=== PATIENT | female | born 1955 | race Caucasian/White ===

== ENCOUNTER 2024-02-26 16:59 | Emergency (ER) | payer OTHER, MEDICARE ==
[2024-02-26 17:25] VITALS: BP 163/70; PULSE 65; RESP 18; TEMP 97.5; BMI 19.2
== END 2024-02-26 21:09 | disposition home or self-care (01) ==
LOC: FER 16:59
DX: S01.111A Laceration without foreign body of right eyelid and periocular area, initial encounter (principal); M79.641 Pain in right hand; W01.198A Fall on same level from slipping, tripping and stumbling with subsequent striking against other object, initial encounter
CPT/HCPCS: 70450-TC; 72125-TC; 73110-TC-RT-FY; 73130-TC-RT-FY; 99284-25